=== PATIENT | male | born 1995 | race Caucasian/White ===

== ENCOUNTER 2018-07-22 10:32 | Emergency (ER) | payer SELFPAY ==
[~2018-07-22] VITALS: Ht 165.1 cm; Wt 61.7 kg
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
--- NOTE | 2018-07-22 10:44 | NUR ---
DR. KASPER AT BEDSIDE FOR EVAL.
[2018-07-22 11:40] VITALS: BP 120/70
== END 2018-07-22 11:41 | disposition home or self-care (01) ==
LOC: ER 10:41
DX: S00.33XA Contusion of nose, initial encounter (principal); S00.03XA Contusion of scalp, initial encounter; V49.49XA Driver injured in collision with other motor vehicles in traffic accident, initial encounter; Y93.89 Activity, other specified; Y92.410 Unspecified street and highway as the place of occurrence of the external cause; Y99.8 Other external cause status
CPT/HCPCS: 70160-TC; 70450-TC; A4606; Z7610